=== PATIENT | female | born 2000 | race Caucasian/White ===

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

== ENCOUNTER 2022-03-24 20:46 | Emergency (ER) | payer BC, OTHER ==
[2022-03-24 20:59] VITALS: BP 130/86; PULSE 90; TEMP 97.5; BMI 35.9
[2022-03-24] MEDS ORDERED: SULFAMETHOXAZOLE/TRIMETHOPRIM 800MG/160MG D.S. TABLET PO ONE (21:06)
[2022-03-24] MEDS ORDERED: SULFAMETHOXAZOLE/TRIMETHOPRIM 800MG/160MG D.S. TABLET ONE (21:09)
== END 2022-03-24 21:20 | disposition home or self-care (01) ==
LOC: FER 20:46
DX: L03.116 Cellulitis of left lower limb (principal)
CPT/HCPCS: 99283-25

== ENCOUNTER 2022-06-13 05:21 | Emergency (ER) | payer BC ==
[2022-06-13 05:42] VITALS: BP 122/79; PULSE 85; RESP 81; TEMP 97.9; BMI 43.8
== END 2022-06-13 06:25 | disposition left against medical advice (07) ==
LOC: JER 05:21
DX: R11.10 Vomiting, unspecified (principal)
CPT/HCPCS: 99281-25